=== PATIENT | female | born 1990 | race American Indian/Alaskan Native ===

== ENCOUNTER 2018-05-13 11:59 | Emergency (ER) | payer OTHER ==
[2018-05-13 12:02] VITALS: BP 107/58; PULSE 90; TEMP 98.3; O2SAT 100
--- NOTE | 2018-05-13 13:28 | C.PDOC ---
History Of Present Illness 28 year old female presents to the emergency department with complaints of sudden onset of sore throat and ear pain. Patient denies cough, abdominal pain, joint pain, rashes, fever, chills, nausea, and vomiting. Patient states that she had positive sick contact last week. HPI: Influenza Time Seen by Provider: 05/13/18 12:05 Chief Complaint: ENT Problem History Per: Patient Exam Limitations: no limitations Onset/Duration Of Symptoms: Sudden Onset Symptoms include: sore throat, other (ear pain. ). denies: fever, vomiting, rash Past Medical History Reviewed: Historical Data, Nursing Documentation, Vital Signs Vital Signs: Last Vital Signs Temp 98.3 F 05/13/18 11:59 Pulse 90 05/13/18 11:59 Resp 20 05/13/18 11:59 BP 107/58 L 05/13/18 11:59 Pulse Ox 100 05/13/18 11:59 - Medical History PMH: No Chronic Diseases Surgical History: No Surg Hx Family History: States: No Known Family Hx - Social History Hx Alcohol Use: Yes Hx Substance Use: No - Immunization History Hx Tetanus Toxoid Vaccination: No Hx Influenza Vaccination: No Hx Pneumococcal Vaccination: No Review Of Systems Except As Marked, All Systems Reviewed And Found Negative. Constitutional: Negative for: Fever, Chills ENT: Positive for: Ear Pain, Throat Pain Gastrointestinal: Negative for: Nausea, Vomiting, Abdominal Pain Musculoskeletal: Negative for: Other (joint pain) Skin: Negative for: Rash Physical Exam - Physical Exam Appears: Non-toxic, No Acute Distress Skin: Normal Color, Warm, Dry Head: Atraumatic, Normacephalic Eye(s): bilateral: Normal Inspection, PERRL, EOMI Ear(s): Bilateral: Other (Fluid in TMs. NO erythema. NO retractions. ) Nose: Normal Oral Mucosa: Moist Throat: Normal, Erythema, No Exudate Neck: Normal, Supple Chest: Symmetrical, No Tenderness Cardiovascular: Rhythm Regular, No Murmur Respiratory: Normal Breath Sounds, No Rales, No Rhonchi, No Wheezing Gastrointestinal/Abdominal: Soft, No Tenderness Neurological/Psych: Oriented x3, Normal Speech, Normal Cognition Medical Decision Making Medical Decision Making: Plan: Tamiflu 75mg PO Throat Culture Rapid Strep Serology - ECG O2 Sat by Pulse Oximetry: 100 (RA) Pulse Ox Interpretation: Normal Disposition Counseled Patient/Family Regarding: Studies Performed, Diagnosis, Need For Followup - Disposition Referrals: Gerda Cummings MD [Staff Provider] - Disposition: HOME/ ROUTINE Disposition Time: 13:26 Condition: STABLE Additional Instructions: DOMINICK COLLINS, thank you for letting us take care of you today. Your provider was Mary Stanley MD and you were treated for SORE THROAT. The emergency medical care you received today was directed at your acute symptoms. If you were prescribed any medication, please fill it and take as directed. It may take several days for your symptoms to resolve. Return to the Emergency Department if your symptoms worsen, do not improve, or if you have any other problems. Please contact your doctor for a follow up appointment in 1-2 days. Bring any paperwork you were given at discharge with you along with any medications you are taking to your follow up visit. Our treatment cannot replace ongoing medical care by a primary care provider outside of the emergency department. Thank you for allowing the [facility] team to be part of your care today. If you had an X-Ray or CT scan: A Radiologist will review the ED reading if any change in treatment is needed we will contact you. If you had a blood, urine, or wound culture: It will take several days for the results, if any change in treatment is needed we will contact you. If you had an STI test: It will take 48 hours for the results. Please call after 1 week if you have not heard back. Prescriptions: Ibuprofen [Motrin Tab] 800 mg PO TID PRN #30 tab PRN Reason: Pain, Moderate (4-7) Oseltamivir Cap [Tamiflu] 75 mg PO BID #9 cap Instructions: Flu, Adult (DC) Forms: [facility] (Kiswahili) - POA Present On Arrival: None - Clinical Impression Clinical Impression: Influenza-like symptoms - Scribe Statement The provider has reviewed the documentation as recorded by the Scribe (Nnamdi Geiger) Provider Attestation: All medical record entries made by the Scribe were at my direction and person ally dictated by me. I have reviewed the chart and agree that the record accurately reflects my personal performance of the history, physical exam, medical decision making, and the department course for this patient. I have also personally directed, reviewed, and agree with the discharge instructions and disposition.
[2018-05-13 13:35] VITALS: RESP 18
== END 2018-05-13 13:33 | disposition home or self-care (01) ==
LOC: C.ER 11:59
DX: J11.1 Influenza due to unidentified influenza virus with other respiratory manifestations (principal); F17.210 Nicotine dependence, cigarettes, uncomplicated